=== PATIENT | male | born 1955 | race Caucasian/White ===

== ENCOUNTER → 2018-10-24 00:08 | Outpatient (CLI) | payer OTHER, SELFPAY ==
--- NOTE | 2018-10-24 11:15 | MERGEMPI_ITS ---
*[facility]* *[facility]* [address] [place] [address] Myocardial Perfusion Imaging - SPECT Regadenoson Date of study: 10/24/2018 *PATIENT PRESENTATION* Height: 182.9cm (72in) Blood Pressure: Weight: 84.5kg (186lb) BSA: 2.08m^2 Referring physician: Nilson Muñoz Ordering physician: Mynor Carbone Impressions: - Abnormal contraction consistent with cardiomyopathy. - Study suggests small myocardial infarction, without ischemia in the territory of the left anterior descending coronary artery. - Low to intermediate risk of cardiac events. Summary: 1. Myocardial perfusion imaging: There is a small sized, severely intense, fixed defect involving the apical wall(s). This suggests small myocardial infarction in the distribution of the left anterior descending coronary artery. 2. The left ventricular end-systolic volume is 71ml. The calculated left ventricular ejection fraction after stress: 40%. LV global systolic function is moderately reduced. Diffuse left ventricular regional motion abnormalities. 3. Stress ECG conclusions: The stress ECG is negative. 4. Imaging information: gated. Image quality reduced due to diaphragmatic attenuation. Attenuation correction used. Recommendations: Transthoracic echocardiography should be performed in order to evaluate LV function. Indication: (pre-op), Appropriate Use Criteria: A (Appropriate). Imaging Technique: Protocol: Regadenoson. Acquisition: Gated SPECT; 1 day - rest/stress. The patient was imaged in the supine position. Attenuation correction used. Isotope administration: - Rest. Tc[99m]-sestamibi. Injection to stress time: 00:45. - Stress. Tc[99m]-sestamibi. 1-2 min before end of exercise Baseline ECG: Normal ECG. Stress ECG: The stress ECG is negative. Myocardial perfusion: Imaging information: gated. Image quality reduced due to diaphragmatic attenuation. The left ventricle is mildly dilated. The right ventricle is dilated. There is a small sized, severely intense, fixed defect involving the apical wall(s). This suggests small myocardial infarction in the distribution of the left anterior descending coronary artery. Ventricular Function (Wall Motion): The left ventricular end-systolic volume is 71ml. The calculated left ventricular ejection fraction after stress: 40%. LV global systolic function is moderately reduced. Diffuse left ventricular regional motion abnormalities. Study data: This study was interpreted by [facility]. Study status: Routine. Consent: The risks, benefits, and alternatives to the procedure were explained to the patient and informed consent was obtained. Procedure: Initial setup. A baseline ECG was recorded. Surface ECG leads and manual cuff blood pressure measurements were monitored. Heart sounds: Normal. Lung sounds: Normal. Regadenoson stress test. Stress testing was performed, with regadenoson by intravenous bolus, for a total dose of 0.4mgover 10.00sec, followed by a 5ml saline flush. The infusion was terminated due to per protocol. Study completion: All catheters inserted during the procedure were removed. The patient tolerated the procedure well and was discharged from the lab. Discharge: The patient left the laboratory in stable condition. Birthdate: Patient birthdate: 1955. Sex: Gender: male. Study date: Study date: 10/24/2018. Study time: 00:01 AM. Signature Documentation: - The imaging portion of this study was interpreted by [employer] Nilson Muñoz MD. - The Stress ECG portion of this study was interpreted by Nilson Muñoz MD. Electronically signed by Nilson Muñoz 10/24/2018 16:08
[2018-10-24] MEDS: Regadenoson 0.4 MG/5 ML SYR IVP (15:05)
== END ==
PROVIDERS: PCP Family Medicine; Visit Provider Thoracic Surgery (Cardiothoracic Vascular Surgery)
DX: I42.9 Cardiomyopathy, unspecified (principal); Z01.810 Encounter for preprocedural cardiovascular examination
CPT/HCPCS: 78452; 93017; J2785